=== PATIENT | male | born 1995 | race Caucasian/White ===

== ENCOUNTER 2025-02-15 08:23 | Emergency (ER) | payer OTHER ==
[~2025-02-15] VITALS: Ht 180.3 cm; Wt 123.7 kg
[2025-02-15 11:21] VITALS: BP 141/85; TEMP 96.7; O2SAT 99
== END 2025-02-15 11:23 | disposition home or self-care (01) ==
LOC: M ED 08:23
DX: S90.111A Contusion of right great toe without damage to nail, initial encounter (principal); W20.8XXA Other cause of strike by thrown, projected or falling object, initial encounter; Y92.89 Other specified places as the place of occurrence of the external cause; Y93.89 Activity, other specified; Y99.1 Military activity

== ENCOUNTER 2025-10-21 09:09 | Emergency (ER) | payer OTHER ==
[~2025-10-21] VITALS: Ht 180.3 cm; Wt 125.0 kg
[2025-10-21] MEDS ORDERED: SEMA0.5P SQ (10:19)
[2025-10-21] MEDS ORDERED: LIDOCAINE W/EPINEPHrine 1% 20 ML VIAL As Ordered ONE (10:32)
[2025-10-21] MEDS: LIDOCAINE W/EPINEPHrine 1% 20 ML VIAL SC ONE (10:35)
[2025-10-21 11:20] VITALS: BP 126/74; TEMP 97.5; O2SAT 100
== END 2025-10-21 11:22 | disposition home or self-care (01) ==
LOC: M ED 09:09
DX: S61.411A Laceration without foreign body of right hand, initial encounter (principal); W26.8XXA Contact with other sharp object(s), not elsewhere classified, initial encounter; Y92.009 Unspecified place in unspecified non-institutional (private) residence as the place of occurrence of the external cause; Y93.89 Activity, other specified; Y99.9 Unspecified external cause status; Z79.899 Other long term (current) drug therapy